=== PATIENT | female | born 1970 | race Native Hawaiian/Other Pacific Islander ===

== ENCOUNTER 2017-04-04 21:25 | Emergency (ER) | payer SELFPAY ==
[2017-04-04 21:42] VITALS: BP 139/98
== END 2017-04-04 23:00 | disposition left against medical advice (07) ==
LOC: ED 21:25
DX: R03.0 Elevated blood-pressure reading, without diagnosis of hypertension (principal); Z53.21 Procedure and treatment not carried out due to patient leaving prior to being seen by health care provider